=== PATIENT | female | born 1990 | race Caucasian/White ===

== ENCOUNTER 2016-11-17 21:37 | Outpatient (CLI) | payer BC ==
[2016-11-17 22:13] VITALS: BP 121/80; PULSE 92; RESP 16; TEMP 97
--- NOTE | 2016-11-18 05:30 | P.MSEPDOC ---
Presenting Problems - Arrival Data Date of Arrival on Unit: 11/17/16 Time of Arrival on Unit: 21:37 Mode of Transport: Ambulatory - Complaint OB-Reason for Admission/Chief Complaint: Possible Onset of Labor Comment: 1914 Medical History - Information : 1 Para: 0 Term: 0 : 0 Abortions: Spontaneous or Elective: 0 Number of Living Children: 0 - Gestational Age Expected Date of Delivery: 11/18/16 Gestational Age by KIRSTIE (wks/days): 40 Weeks and 0 Days Review of Systems - Review of Systems Constitutional: No problems Breast: No problems ENT: No problems Cardiovascular: No problems Respiratory: No problems Gastrointestinal: No problems Genitourinary: No problems Musculoskeletal: No problems Neurological: No problems Skin: No problems Vital Signs - Temperature Temperature: 97 F Temperature Source: Temporal Artery Scan - Pulse Right Brachial Pulse Rate: 92 Pulse Assessment Method: Automatic Cuff - Respirations Respiratory Rate: 16 Oxygen Delivery Method: Room Air O2 Sat by Pulse Oximetry: 99 - Blood Pressure Right Arm Blood Pressure: 121/80 Blood Pressure Mean: 93 Blood Pressure Source: Automatic Cuff Medical Screen Scoring (Pre) - Cervical Exam Dilation: 1-3 cm = 1 Effacement: More than 50% = 2 Membranes: Intact - Uterine Contractions Frequency: > 5 minutes apart = 1 Duration: N/A Intensity: N/A - Maternal Vital Signs Maternal Temperature: N/A Maternal Blood Pressure: N/A Signs of Preeclampsia: N/A Maternal Respirations: N/A - Maternal Trauma Maternal Trauma: N/A - Assessment Baseline FHR: 130 Heart Rate - NICHD Category: Category II (Indeterminate) = 3 NST: Reactive Position: N/A Station: N/A - Total Score Total Score (Pre): 7 - Level of Risk Level of Risk: Medium (6-9) Medical Screen Scoring (Post) - Cervical Exam Dilation: 1-3 cm = 1 - Uterine Contractions Frequency: > 5 minutes apart = 1 Duration: > 40 seconds = 2 - Assessment Heart Rate - NICHD Category: Category I (Normal) = 0 - Total Score Total Score (Post): 4 - Post Treatment Level of Risk Post Treatment Level of Risk: Low (0-5) Physician Notification (Post) - Physician Notified Physician Notified Date: 11/17/16 Physician Notified Time: 23:05 Spoke With: Jad Laura Order Received: Yes (discharge) Disposition - Disposition OB Disposition: Discharge to home, Written follow up instructions reviewed Discharge Date: 11/17/16 Discharge Time: 23:10 I agree with the RN Medical Screening Exam: Yes Risk & Benefit of care provided described in d/c instruction: Yes Diagnosis: FALSE LABOR AT OR AFTER 37 COMPLETED WEEKS OF GESTATION
== END 2016-11-17 23:10 | disposition home or self-care (01) ==
LOC: FBPOP 21:37
PROVIDERS: ATTEND Obstetrics & Gynecology
DX: O47.1 False labor at or after 37 completed weeks of gestation (principal); Z3A.40 40 weeks gestation of pregnancy
CPT/HCPCS: 59025; 99213

== ENCOUNTER 2016-11-18 03:12 | Inpatient (IN) | payer BC ==
[2016-11-18] MEDS ORDERED: LIDOCAINE 1% (PF) 10 MG/ML (30 ML SDV) SQ PRN (04:04)
[2016-11-18] MEDS ORDERED: TERBUTALINE 1 MG/ML VIAL SQ PRN (04:04)
[2016-11-18] MEDS ORDERED: AMPICILLIN 2,000 MG in SODIUM CHLORIDE 0.9% 100 ML IVPB STA (04:04)
[2016-11-18] MEDS ORDERED: CARBOPROST TROMETHAMINE 250 MCG/ML 1 ML AMP IM PRN (04:04)
[2016-11-18] MEDS ORDERED: OXYTOCIN 10 UNIT/ML 1 ML VIAL IM PRN (04:04)
[2016-11-18] MEDS ORDERED: METHYLERGONOVINE 0.2 MG/ML 1 ML AMP IM PRN (04:04)
[2016-11-18 04:32] LABS: Basophils % (A) 0 %; CH 28.7; CHCM 33.6; Eosinophils # (A) 0.1 k/uL (0-0.7); Eosinophils % (A) 1 %; HCT 34.9 % (34.0-46.0); HDW 3.12; HGB 11.8 gm/dL (11.4-16.0); Luc # (Auto) 0.12; Luc % (Auto) 1; Lymphocytes % (A) 7 %; MCHC 33.8 g/dL (31.0-37.0); Mean Platelet Volume 8.3; Monocytes # (A) 0.5 k/uL (0-1.0); Monocytes % (A) 4 %; Neutrophils # (A) 11.5 k/uL (1.3-7.7); Neutrophils % (A) 88 %; RBC 4.06 m/uL (3.80-5.40); WBC 13.2 k/uL (3.8-10.6); WBC (Perox) 14.31
[2016-11-18] MEDS: LACTATED RINGERS 1,000 ML IV SCH (04:34)
[2016-11-18 04:49] VITALS: BMI 32.1
--- NOTE | 2016-11-18 05:29 | P.HPOB ---
History of Present Illness H&P Date: 11/18/16 Chief Complaint: LAbor, PROM 26 year old presents at 40 weeks in labor. Her cervix is 5cm dilated/90% effaced/-1 station. She is marciano every few minutes. heart tones are 145-150 with moderate variability and reactive. Patient states her water has been possibly leaking since November 16 and admission was positive. Review of Systems All systems: negative Constitutional: Denies chills, Denies fever Eyes: denies blurred vision, denies pain Ears, nose, mouth and throat: Denies headache, Denies sore throat Cardiovascular: Denies chest pain, Denies shortness of breath Respiratory: Denies cough Gastrointestinal: Denies abdominal pain, Denies diarrhea, Denies nausea, Denies vomiting Genitourinary: Denies dysuria, Denies hematuria Musculoskeletal: Denies myalgias Integumentary: Denies pruritus, Denies rash Neurological: Denies numbness, Denies weakness Psychiatric: Denies anxiety, Denies depression Endocrine: Denies fatigue, Denies weight change Past Medical History Past Medical History: No Reported History Additional Past Medical History / Comment(s): Obstetric history: This is her first and she's had care with Dr. Kwong since 10 weeks gestation. Blood type AB+, rubella nonimmune, hepatitis B negative, GBS negative, HIV nonreactive, RPR nonreactive. History of Any Multi-Drug Resistant Organisms: None Reported Additional Past Surgical History / Comment(s): left eye Past Anesthesia/Blood Transfusion Reactions: No Reported Reaction Past Psychological History: No Psychological Hx Reported Smoking Status: Never smoker Past Alcohol Use History: None Reported Past Drug Use History: None Reported - Past Family History Mother Family Medical History: No Reported History Medications and Allergies Home Medications Medication Instructions Recorded Confirmed Type No Known Home Medications [No 11/17/16 11/18/16 History Known Home Medications] Allergies Allergy/AdvReac Type Severity Reaction Status Date / Time Iodinated Contrast Media - AdvReac Unknown Verified 11/17/16 21:48 Oral and Childhood Exam Osteopathic Statement: *. No significant issues noted on an osteopathic structural exam other than those noted in the History and Physical/Consult. - Vital Signs Vital signs: Vital Signs Temp Pulse Resp BP 11/18/16 04:04 98.3 F 83 16 114/73 11/18/16 04:00 98.3 F 83 16 114/73 Intake and Output 11/17/16 11/17/16 11/18/16 14:59 22:59 06:59 Other: Weight 170 kg Patient Weight 11/18/16 06:59 Weight 170 kg Heart: Regular rate and rhythm Lungs: Clear to auscultation bilaterally Abdomen: Soft, nontender Extremities: Negative Homans sign Results Result Diagrams: 11/18/16 04:20 Abnormal Lab Results - Last 24 Hours (Table) 11/18/16 Range/Units 04:20 WBC 13.2 H (3.8-10.6) k/uL Neutrophils # 11.5 H (1.3-7.7) k/uL Assessment and Plan (1) Normal labor Status: Acute (2) Prolonged rupture of membranes Status: Acute Plan: 1. Admit to family place 2. Antibiotics for prolonged rupture 3. Anticipate normal vaginal delivery
[2016-11-18] MEDS ORDERED: Acetaminophen-Codeine 300-30mg TAB PO PRN ×2 (06:21)
[2016-11-18] MEDS ORDERED: diphenhydrAMINE 50 MG CAP PO PRN (06:21)
[2016-11-18] MEDS ORDERED: BENZOCAINE SPRAY 57GM TOPICAL PRN (06:21)
[2016-11-18] MEDS ORDERED: ZOLPIDEM 5 MG TAB PO PRN (06:21)
[2016-11-18] MEDS ORDERED: diphenhydrAMINE 25 MG CAP PO PRN (06:21)
[2016-11-18] MEDS ORDERED: LANOLIN CREAM 5 GM TUBE TOPICAL PRN (06:21)
[2016-11-18] MEDS ORDERED: WITCH HAZEL 1 EACH MED..PAD TOPICAL PRN (06:21)
[2016-11-18] MEDS ORDERED: ACETAMINOPHEN TAB 325 MG TAB PO PRN (06:21)
[2016-11-18] MEDS ORDERED: SIMETHICONE 80 MG CHEWABLE PO PRN (06:21)
[2016-11-18] MEDS ORDERED: diphenhydrAMINE 50 MG/ML 1 ML VIAL IVP PRN ×2 (06:21)
[2016-11-18] MEDS ORDERED: HYDROCORTISONE 2.5% RECTAL CREAM 30 GM TUBE RECTAL PRN (06:21)
[2016-11-18] MEDS ORDERED: IBUPROFEN 600 MG TAB PO PRN (06:21)
--- NOTE | 2016-11-18 06:24 | P.PROBDLV ---
Vaginal Delivery Note - . Vaginal Delivery Note: 26-year-old presented at 40 weeks in labor. She says her water might have broken 2 days ago so ampicillin was started after amnio sure was positive. heart tones 140-145 with moderate variability and reactive. Cervix was 4 cm dilated, 90% effaced, and -1 station. She is marciano every 2-5 minutes. She quickly progressed to complete at 5:52 AM, pushed, delivered a viable female over intact perineum at 5:54 AM. Head delivered OA, anterior shoulder delivered gentle downward traction followed by posterior shoulder and rest of body. Nose and mouth bulb suctioned, cord clamped and cut , placed on mother's abdomen. Apgars 8, 9, weight 7 pounds 1.2 ounces. Placenta delivered spontaneously, intact with three-vessel cord at 5:55 AM. Vagina, cervix, perineum inspected. Superior periurethral laceration was repaired with 3-0 Vicryl. Estimated blood loss 200 mL. Mother and baby in stable condition.
[2016-11-18] MEDS ORDERED: OXYTOCIN 20 UNITS/1000 ML NS 1,000 ML IV SCH (06:30)
[2016-11-18] MEDS ORDERED: AMPICILLIN 1,000 MG in SODIUM CHLORIDE 0.9% 50 ML IVPB SCH (08:06)
[2016-11-18] MEDS: SENNOSIDES-DOCUSATE SODIUM 1 EACH TAB PO SCH (20:04)
--- NOTE | 2016-11-19 07:30 | P.PNOBGVD ---
Subjective - Subjective Patient reports: Reports appetite normal, Reports voiding normally, Reports pain well controlled, Reports ambulating normally [place]: doing well Objective - Latest Vital Signs Latest vital signs: Vital Signs Temp Pulse Resp BP Pulse Ox 11/19/16 00:00 98.9 F 78 18 114/63 99 11/18/16 20:00 98.3 F 69 18 122/63 98 11/18/16 16:00 97.9 F 79 18 115/71 11/18/16 12:00 97.5 F L 94 18 116/72 11/18/16 08:16 97 16 129/84 11/18/16 07:46 96.9 F L 82 17 128/72 Intake and Output 11/18/16 11/19/16 11/19/16 22:59 06:59 14:59 Other: # Voids 1 1 - Exam Lungs: bilateral: normal Chest: Normal S1, Normal S2 Extremities: Present: normal Abdomen: Present: normal appearance, soft Uterus: Present: normal, firm Assessment and Plan (1) Normal labor Narrative/Plan: day #1. Patient is resting without complaints. Vital signs are stable and she is afebrile. Uterus is firm nontender and she is having normal lochia. My impression this is a normal course. Plan is to continue routine care and patient wishes to go home later today. Current Visit: Yes Status: Acute Code(s): O80 - ENCOUNTER FOR FULL-TERM UNCOMPLICATED DELIVERY; Z37.9 - OUTCOME OF DELIVERY, UNSPECIFIED SNOMED Code(s ): 60321644
--- NOTE | 2016-11-19 07:33 | P.DS ---
Providers Date of admission: 11/18/16 03:59 Expected date of discharge: 11/19/16 Attending physician: Andrew Kwong Primary care physician: Stated None - Discharge Diagnosis(es) (1) Normal labor Current Visit: Yes Status: Acute Hospital Course: Please see dictated H&P for intimate details of this patient's admission. In brief summary is a pleasant 26-year-old 1 para 0 female who is admitted to labor and delivery in active labor. Patient was on have a vaginal delivery viable female . Please see dictated delivery note. day #1 patient is without complaints she wishes to go home. Patient's felt to be stable for discharge home to follow up with me in 6 weeks. Procedures: Normal spontaneous vaginal delivery. Patient Condition at Discharge: Good Plan - Discharge Summary New Discharge Prescriptions: Acetaminophen-Codeine 300-30mg [Tylenol w/codeine #3] 1 - 2 each PO Q4HR PRN # 30 tab PRN Reason: Mild Pain exceeding Tylenol Ibuprofen [Motrin] 600 mg PO Q6HR PRN #40 tab PRN Reason: Mild Pain Or Fever >= 100.5 Discharge Medication List Acetaminophen-Codeine 300-30mg [Tylenol w/codeine #3] 1 - 2 each PO Q4HR PRN # 30 tab 11/19/16 [Rx] Ibuprofen [Motrin] 600 mg PO Q6HR PRN #40 tab 11/19/16 [Rx] Follow up Appointment(s)/Referral(s): Andrew Kwong MD [STAFF PHYSICIAN] - 01/04/17 10:30 am Patient Instructions/Handouts: Vaginal Delivery (DC) Activity/Diet/Wound Care/Special Instructions: No intercourse or anything per vagina for 6 weeks. Please call if any fever, chills, excessive vaginal bleeding, and/or abdominal pain.
[2016-11-19 08:28] VITALS: RESP 16
[2016-11-19] MEDS: SENNOSIDES-DOCUSATE SODIUM 1 EACH TAB PO SCH ×3 (08:39→23:17)
[2016-11-19] MEDS: LACTATED RINGERS 1,000 ML IV SCH ×2 (23:17→23:18)
--- NOTE | 2016-11-20 06:08 | P.PNOBGVD ---
Subjective - Subjective Patient reports: Reports appetite normal, Reports voiding normally, Reports pain well controlled, Reports ambulating normally : doing well Objective - Latest Vital Signs Latest vital signs: Vital Signs Temp Pulse Resp BP 11/19/16 23:59 97.6 F 61 16 117/70 11/19/16 16:00 98.9 F 70 16 101/58 11/19/16 08:00 98.3 F 75 16 102/62 Intake and Output 11/19/16 11/19/16 11/20/16 14:59 22:59 06:59 Intake Total 600 Balance 600 Intake: Oral 600 Other: # Voids 2 - Exam Lungs: bilateral: normal Chest: Normal S1, Normal S2 Extremities: Present: normal Abdomen: Present: normal appearance, soft Uterus: Present: normal, firm Assessment and Plan (1) Normal labor Narrative/Plan: day #2. Patient is resting without complaints. She did decide to stay last night because her baby needed to stay another day. Plan today is to continue routine care and discharge home. Current Visit: Yes Status: Acute Code(s): O80 - ENCOUNTER FOR FULL-TERM UNCOMPLICATED DELIVERY; Z37.9 - OUTCOME OF DELIVERY, UNSPECIFIED SNOMED Code(s ): 38854204
[2016-11-20 09:23] VITALS: BP 108/68; PULSE 64; TEMP 97.7
== END 2016-11-20 11:15 | disposition home or self-care (01) | DRG 775 ==
LOC: FBPOP 03:12 → 4FBP 03:59
PROVIDERS: ADMIT Obstetrics & Gynecology; ATTEND Obstetrics & Gynecology
PROC: 10E0XZZ Delivery of Products of Conception, External Approach (ICD-10-PCS; principal; 2016-11-18)
PROC: 0TQDXZZ Repair Urethra, External Approach (ICD-10-PCS; principal; 2016-11-18)
DX: O42.92 Full-term premature rupture of membranes, unspecified as to length of time between rupture and onset of labor (principal); O71.82 Other specified trauma to perineum and vulva; Z37.0 Single live birth; Z3A.40 40 weeks gestation of pregnancy
CPT/HCPCS: 59025; 85025; 88307; 99213

== ENCOUNTER 2019-02-12 18:29 | Outpatient (CLI) | payer BC ==
[2019-02-12 19:24] VITALS: BP 112/68; PULSE 90; RESP 16; TEMP 96.7
--- NOTE | 2019-04-24 00:11 | P.MSEPDOC ---
Presenting Problems - Arrival Data Date of Arrival on Unit: 02/12/19 Time of Arrival on Unit: 18:30 Mode of Transport: Ambulatory - Complaint OB-Reason for Admission/Chief Complaint: Rule Out SROM Comment: Patient presents to triage with c/o of leaking x3 days. Medical History - Information : 2 Para: 1 Term: 1 : 0 Abortions: Spontaneous or Elective: 0 Number of Living Children: 1 - Gestational Age Gestational Age by KIRSTIE (wks/days): 39 Weeks and 1 Days Review of Systems - Review of Systems Constitutional: No problems Breast: No problems ENT: No problems Cardiovascular: No problems Respiratory: No problems Gastrointestinal: No problems Genitourinary: No problems Musculoskeletal: No problems Neurological: No problems Skin: No problems Vital Signs - Temperature Temperature: 96.7 F Temperature Source: Temporal Artery Scan - Pulse Pulse Oximetery Pulse Rate: 90 Pulse Assessment Method: Pulse Oximetry - Respirations Respiratory Rate: 16 Oxygen Delivery Method: Room Air - Blood Pressure Sitting Blood Pressure: 112/68 Blood Pressure Mean: 82 Blood Pressure Source: Automatic Cuff Medical Screen Scoring (Pre) - Cervical Exam Dilation: 1-3 cm = 1 Membranes: Intact - Uterine Contractions Frequency: > 5 minutes apart = 1 Duration: > 40 seconds = 2 Intensity: N/A - Maternal Vital Signs Maternal Temperature: N/A Maternal Blood Pressure: N/A Signs of Preeclampsia: N/A Maternal Respirations: N/A - Maternal Trauma Maternal Trauma: N/A - Assessment - Baby A Baseline FHR: 135 Heart Rate - NICHD Category: Category I (Normal) = 0 NST: Reactive Position: N/A Station: N/A - Total Score - Baby A Total Score - Baby A: 4 - Total Score - Baby B Total Score - Baby B: 4 - Total Score - Baby C Total Score - Baby C: 4 - Level of Risk - Baby A Level of Risk - Baby A: Low (0-5) - Level of Risk - Baby B Level of Risk - Baby B: Low (0-5) - Level of Risk - Baby C Level of Risk - Baby C: Low (0-5) Physician Notification (Pre) - Physician Notified Physician Notified Date: 02/12/19 Physician Notified Time: 19:07 Physician/Practitioner Notifed:: Dr. Street New Order Received: Yes - Notification Comment Comment: Okay to discharge patient home with instructions, patient to follow up with Yazmin for her regularly scheduled appointment on 02/14 Disposition - Disposition OB Disposition: Discharge to home, Written follow up instructions reviewed Discharge Date: 02/12/19 Discharge Time: 19:12 I agree with the RN Medical Screening Exam: Yes Risk & Benefit of care provided described in d/c instruction: Yes Diagnosis: FALSE LABOR BEFORE 37 COMPLETED WEEKS OF GEST, THIRD TRI
== END 2019-02-12 19:12 | disposition home or self-care (01) ==
LOC: FBPOP 18:29
PROVIDERS: ATTEND Obstetrics & Gynecology
DX: O47.1 False labor at or after 37 completed weeks of gestation (principal); Z3A.39 39 weeks gestation of pregnancy
CPT/HCPCS: 59025; 84112; 99213

== ENCOUNTER 2019-02-15 13:04 | Outpatient (CLI) | payer BC ==
[2019-02-15 14:13] VITALS: BP 110/62; PULSE 77; RESP 16; TEMP 96.3
[2019-02-15 14:18] LABS: Appearance,Urine Clear (Clear); Bacteria,Urine Rare /hpf; Bilirubin,Urine Negative (Negative); Blood,Urine Negative (Negative); Color,Urine Yellow; Glucose,Urine (UA) Negative (Negative); Ketones,Urine Negative (Negative); Leukocyte Esterase,Urine Trace (Negative); Mucus,Urine Rare /hpf; Nitrite,Urine Negative (Negative); Protein,Urine Negative (Negative); RBC,Urine <1 /hpf (0-5); Specific Gravity,Urine 1.014 (1.001-1.035); Squamous Epithelial Cell,Urine 2 /hpf (0-4); Urobilinogen,Urine <2.0 mg/dL (<2.0); WBC,Urine 3 /hpf (0-5)
--- NOTE | 2019-02-15 16:55 | P.MSEPDOC ---
Presenting Problems - Arrival Data Date of Arrival on Unit: 02/15/19 Time of Arrival on Unit: 13:04 Mode of Transport: Wheelchair - Complaint OB-Reason for Admission/Chief Complaint: Possible Onset of Labor Medical History - Information : 2 Para: 1 Term: 1 : 0 Abortions: Spontaneous or Elective: 1 Number of Living Children: 1 - Gestational Age Gestational Age by KIRSTIE (wks/days): 39 Weeks and 4 Days Review of Systems - Review of Systems Constitutional: No problems Breast: No problems ENT: No problems Cardiovascular: No problems Respiratory: No problems Gastrointestinal: No problems Genitourinary: No problems Musculoskeletal: No problems Neurological: No problems Skin: No problems Vital Signs - Temperature Temperature: 96.3 F Temperature Source: Temporal Artery Scan - Pulse Right Pulse Rate: 77 Pulse Assessment Method: Automatic Cuff - Respirations Respiratory Rate: 16 Oxygen Delivery Method: Room Air - Blood Pressure Right Arm Blood Pressure: 110/62 Blood Pressure Mean: 78 Blood Pressure Source: Automatic Cuff Medical Screen Scoring (Pre) - Cervical Exam Dilation: 1-3 cm = 1 Membranes: Intact - Uterine Contractions Frequency: > 5 minutes apart = 1 - Maternal Vital Signs Maternal Temperature: N/A Maternal Blood Pressure: N/A Signs of Preeclampsia: N/A Maternal Respirations: N/A - Maternal Trauma Maternal Trauma: N/A - Assessment - Baby A Baseline FHR: 135 Heart Rate - NICHD Category: Category I (Normal) = 0 NST: Reactive Position: N/A - Total Score - Baby A Total Score - Baby A: 2 - Total Score - Baby B Total Score - Baby B: 2 - Total Score - Baby C Total Score - Baby C: 2 - Level of Risk - Baby A Level of Risk - Baby A: Low (0-5) - Level of Risk - Baby B Level of Risk - Baby B: Low (0-5) - Level of Risk - Baby C Level of Risk - Baby C: Low (0-5) Physician Notification (Pre) - Physician Notified Physician Notified Date: 02/15/19 Physician Notified Time: 13:45 Physician/Practitioner Notifed:: anthony Spoke With: anthony New Order Received: Yes - Notification Comment Comment: reported pt visit with flank pain, irregular contractions, reactive nst and cervical exam. would like pt monitored for one hour, cervix rechecked at that time. ua/cs sent for rule out kidney stone Physician Notification (Post) - Physician Notified Physician Notified Date: 02/15/19 Physician Notified Time: 15:03 Physician/Practitioner Notified:: anthony Spoke With: anthony New Order Received: Yes - Notification Comment Comment: reported decreased pain, ua results, reactive nst, irregular contractions. dr discharges pt home Disposition - Disposition OB Disposition: Discharge to home Discharge Date: 02/15/19 Discharge Time: 15:20 I agree with the RN Medical Screening Exam: Yes Risk & Benefit of care provided described in d/c instruction: Yes Diagnosis: FALSE LABOR AT OR AFTER 37 COMPLETED WEEKS OF GESTATION
== END 2019-02-15 15:20 | disposition home or self-care (01) ==
LOC: FBPOP 13:04
PROVIDERS: ATTEND Obstetrics & Gynecology
DX: O47.1 False labor at or after 37 completed weeks of gestation (principal); Z3A.39 39 weeks gestation of pregnancy
CPT/HCPCS: 81001; 87086; 99213

== ENCOUNTER 2019-02-18 14:43 | Inpatient (IN) | payer BC ==
--- NOTE | 2019-02-19 06:11 | P.HPOB ---
History of Present Illness H&P Date: 02/19/19 Chief Complaint: Postdates induction. This patient is a pleasant 28-year-old 2 para 1 female estimated date of confinement 02/18/2019 estimated gestational age 40-2/7 weeks who is presenting to labor and delivery for requested induction of labor due to postdates preg dahlia. Patient is requesting to proceed with induction by artificial rupture membranes in the old off on Pitocin initially. Patient's care has been uncomplicated. Review of Systems Genitourinary: Reports Menstruation: Reports amenorrhea Past Medical History Past Medical History: No Reported History Additional Past Medical History / Comment(s): Patient is a previous term vaginal delivery baby girl and October 2016. History of Any Multi-Drug Resistant Organisms: None Reported Additional Past Surgical History / Comment(s): left eye Past Anesthesia/Blood Transfusion Reactions: No Reported Reaction Past Psychological History: No Psychological Hx Reported Smoking Status: Never smoker Past Alcohol Use History: None Reported Past Drug Use History: None Reported - Past Family History Mother Family Medical History: No Reported History Medications and Allergies Home Medications Medication Instructions Recorded Confirmed Type No Known Home Medications 02/12/19 02/15/19 History Allergies Allergy/AdvReac Type Severity Reaction Status Date / Time Iodinated Contrast- Oral and AdvReac Unknown Verified 02/15/19 14:13 IV Dye Childhood Exam - OBG Physical Exam Abdomen: bowel sounds normal, no diffuse tenderness, no bruit present, no guarding noted, no hepatomegaly, no splenomegaly, no mass Vulva: both: normal Vagina: normal moisture, no discharge Cervix: no lesion (Cervix is 2-3 cm dilated 50% effaced.), no discharge Uterus: enlarged (Fundal height is consistent with gestational) Results blood work shows she is AB+, rubella nonimmune, RPR is nonreactive, hepatitis B is negative, Glucola was normal, ultrasounds have been normal, group B strep was negative. Assessment and Plan Assessment: This is a pleasant 28-year-old 2 para 1 female 40-2/7 weeks gestation who is admitted to labor and delivery for requested induction of labor. Patient is requesting artificial rupture membranes initially and then will receive Pitocin if necessary if labor does not ensue thereafter. I did discuss the induction process with her. (1) Postmaturity , 40-42 weeks gestation Status: Acute Code(s): O48.0 - POST-TERM SNOMED Code(s): 35081582010520 (2) Encounter for planned induction of labor Status: Acute Code(s): Z34.90 - ENCNTR FOR SUPRVSN OF NORMAL , UNSP, UNSP TRIMESTER SNOMED Code(s): 862366792
[2019-02-20] MEDS ORDERED: METHYLERGONOVINE 0.2 MG/ML 1 ML AMP IM PRN (05:50)
[2019-02-20] MEDS ORDERED: TERBUTALINE 1 MG/ML VIAL SQ PRN (05:50)
[2019-02-20] MEDS ORDERED: LIDOCAINE 0.5% (PF) 5 MG/ML (50 ML SDV) SQ PRN (05:50)
[2019-02-20] MEDS ORDERED: CARBOPROST TROMETHAMINE 250 MCG/ML 1 ML AMP IM PRN (05:50)
[2019-02-20] MEDS ORDERED: OXYTOCIN 10 UNIT/ML 1 ML VIAL IM PRN (05:50)
[2019-02-20] MEDS: LACTATED RINGERS 1,000 ML IV SCH ×2 (06:06→12:06)
[2019-02-20 07:06] VITALS: BMI 29.5
[2019-02-20 07:42] LABS: Basophils % (A) 0 %; Eosinophils # (A) 0.1 k/uL (0-0.7); Eosinophils % (A) 1 %; HCT 33.8 % (34.0-46.0); HGB 11.2 gm/dL (11.4-16.0); Lymphocytes # (A) 1.3 k/uL (1.0-4.8); Lymphocytes % (A) 19 %; MCH 29.2 pg (25.0-35.0); MCHC 33.1 g/dL (31.0-37.0); MCV 88.3 fL (80.0-100.0); Mean Platelet Volume 8.4; Monocytes # (A) 0.5 k/uL (0-1.0); Monocytes % (A) 7 %; Neutrophils % (A) 72 %; Platelet Count 203 k/uL (150-450); RBC 3.83 m/uL (3.80-5.40); RDW 14.1 % (11.5-15.5); WBC 6.9 k/uL (3.8-10.6)
[2019-02-20] MEDS ORDERED: OXYTOCIN 20 UNITS/1000 ML NS 1,000 ML IV SCH (13:01)
[2019-02-20] MEDS ORDERED: ACETAMINOPHEN TAB 325 MG TAB PO PRN (13:01)
[2019-02-20] MEDS ORDERED: SIMETHICONE 80 MG CHEWABLE PO PRN (13:01)
[2019-02-20] MEDS ORDERED: BENZOCAINE/MENTHOL SPRAY 1 GM/SPRAY AEROSOL TOPICAL PRN (13:01)
[2019-02-20] MEDS ORDERED: IBUPROFEN 600 MG TAB PO PRN (13:01)
[2019-02-20] MEDS ORDERED: LANOLIN CREAM 5 GM TUBE TOPICAL PRN (13:01)
[2019-02-20] MEDS ORDERED: ZOLPIDEM 5 MG TAB PO PRN (13:01)
[2019-02-20] MEDS ORDERED: WITCH HAZEL 1 EACH MED..PAD TOPICAL PRN (13:01)
[2019-02-20] MEDS ORDERED: BISACODYL 10 MG SUPP RECTAL PRN (13:01)
[2019-02-20] MEDS ORDERED: diphenhydrAMINE 25 MG CAP PO PRN (13:01)
[2019-02-20] MEDS ORDERED: diphenhydrAMINE 50 MG/ML 1 ML VIAL IVP PRN (13:01)
[2019-02-20] MEDS ORDERED: HYDROCORTISONE 2.5% RECTAL CREAM 30 GM TUBE RECTAL PRN (13:01)
[2019-02-20 13:08] VITALS: RESP 16
--- NOTE | 2019-02-20 18:22 | P.PROBDLV ---
Vaginal Delivery Note - . Vaginal Delivery Note: Normal spontaneous vaginal delivery viable male infant Apgars 9 and 9 delivery time was 1229 hrs. Delivery note please see dictated H&P for intimate details of this patient's admission. Brief summary this is a pleasant 28-year-old 2 para 1 female 40-2/7 weeks gestation who is admitted to labor and delivery for requested induction of labor. Patient is admitted she is 3 cm dilated has artificial rupture membranes for clear fluid patient does have contractions quickly thereafter. heart tones remained category 1. Patient does not require Pitocin. Patient quickly progresses and pushes the head to the perineum. Posterior perineum was supported and we have controlled delivery of the 's head over the intact perineum. Mouth and nares are bulb suctioned and there is a loose nuchal cord which is easily reduced. With gentle downward traction we then have deliver the anterior posterior shoulder and rest of this 's body. Is a vigorous viable male infant Apgars are 9 and 9 delivery time was 1229 hrs. After delivery of the the infant is late the mother's abdomen. Cord was allowed to stop pulsating is then doubly clamped and cut appears to be trivascular. Placenta is then spontaneously delivered intact. Inspection of the perineum does show a left upper labial laceration that is not through and through and is near the urethra. After prolonged observation and it appears to be hemostatic. I initially did place a suture in this area however I did remove it because I feel it will cause more scarring than good. For this reason this superficial laceration was allowed to heal on its own. No other lacerations are noted. Estimated blood loss is 1 50 mL. and mother are stable delivery room. There are no complications.
[2019-02-20] MEDS: SENNOSIDES-DOCUSATE SODIUM 1 EACH TAB PO SCH (20:37)
--- NOTE | 2019-02-21 06:05 | P.PNOBGVD ---
Subjective - Subjective Patient reports: Reports appetite normal, Reports voiding normally, Reports pain well controlled, Reports ambulating normally : doing well Objective - Latest Vital Signs Latest vital signs: Vital Signs Temp Pulse Resp BP 02/20/19 23:54 98.1 F 69 16 91/47 02/20/19 20:00 98.5 F 76 16 112/69 02/20/19 16:00 98.5 F 84 16 108/62 02/20/19 15:02 79 16 113/58 02/20/19 14:32 61 16 106/63 02/20/19 14:02 73 16 106/61 02/20/19 13:47 67 16 108/55 02/20/19 13:32 69 16 119/56 02/20/19 13:17 97.9 F 66 16 107/57 02/20/19 13:02 67 16 98/63 Intake and Output 02/20/19 02/20/19 02/21/19 14:59 22:59 06:59 Output Total 1450 Balance -1450 Output: Urine 1450 Other: # Voids 1 - Exam Lungs: bilateral: normal Chest: Normal S1, Normal S2 Extremities: Present: normal Abdomen: Present: normal appearance, soft Uterus: Present: normal, firm - Labs Labs: Abnormal Lab Results - Last 24 Hours (Table) 02/20/19 Range/Units 07:23 Hgb 11.2 L (11.4-16.0) gm/dL Hct 33.8 L (34.0-46.0) % Assessment and Plan Assessment: day #1. Patient is resting without complaints and wishes to go home. Vital signs are stable she's afebrile. Uterus is firm nontender and she is having normal lochia. Plan today is to continue routine care discharge home later today. (1) Postmaturity , 40-42 weeks gestation Current Visit: No Status: Acute Code(s): O48.0 - POST-TERM SNOMED Code(s): 78630471388420 (2) Encounter for planned induction of labor Current Visit: No Status: Acute Code(s): Z34.90 - ENCNTR FOR SUPRVSN OF NORMAL , UNSP, UNSP TRIMESTER SNOMED Code(s): 488551132
--- NOTE | 2019-02-21 06:09 | P.DS ---
Providers Date of admission: 02/20/19 05:40 Expected date of discharge: 02/21/19 Attending physician: Andrew Kwong Primary care physician: Stated None - Discharge Diagnosis(es) (1) Postmaturity , 40-42 weeks gestation Current Visit: No Status: Acute (2) Encounter for planned induction of labor Current Visit: No Status: Acute Hospital Course: Please see dictated H&P for intimate details of this patient's admission. Brief summary this pleasant 28-year-old 2 para 1 female 40-2/7 weeks gestation who is admitted to labor and delivery for requested induction of labor. Patient has artificial rupture membranes and goes on to quickly to have a vaginal delivery viable male . Please see dictated delivery note. day #1 patient wishes to go home felt be stable for discharge home follow up in 6 weeks. Patient declined a rubella vaccine at the time of discharge. Procedures: Induction of labor normal vaginal delivery Patient Condition at Discharge: Good Plan - Discharge Summary New Discharge Prescriptions: New Ibuprofen [Motrin] 600 mg PO Q6HR PRN #40 tab PRN Reason: Mild Pain Or Fever >= 100.5 Discharge Medication List Ibuprofen [Motrin] 600 mg PO Q6HR PRN #40 tab 02/21/19 [Rx] Follow up Appointment(s)/Referral(s): Andrew Kwong MD [STAFF PHYSICIAN] - 04/08/19 10:15 am Patient Instructions/Handouts: Vaginal Delivery (DC) Activity/Diet/Wound Care/Special Instructions: No intercourse or anything per vagina for 6 weeks. Please call if any fever, chills, excessive vaginal bleeding, and/or abdominal pain. Discharge Disposition: HOME SELF-CARE
[2019-02-21 09:21] VITALS: BP 97/63; PULSE 79; TEMP 98.3
[2019-02-21] MEDS: SENNOSIDES-DOCUSATE SODIUM 1 EACH TAB PO SCH (09:23)
== END 2019-02-21 13:40 | disposition home or self-care (01) | DRG 807 ==
LOC: 4FBP 02-20 05:40
PROVIDERS: ADMIT Obstetrics & Gynecology; ATTEND Obstetrics & Gynecology
PROC: 10E0XZZ Delivery of Products of Conception, External Approach (ICD-10-PCS; principal; 2019-02-20)
PROC: 10907ZC Drainage of Amniotic Fluid, Therapeutic from Products of Conception, Via Natural or Artificial Opening (ICD-10-PCS; 2019-02-20)
DX: O48.0 Post-term pregnancy (principal); Z37.0 Single live birth; O69.81X0 Labor and delivery complicated by cord around neck, without compression, not applicable or unspecified; O70.0 First degree perineal laceration during delivery; Z3A.40 40 weeks gestation of pregnancy; Z91.041 Radiographic dye allergy status
CPT/HCPCS: 85025; 86850; 86900; 86901